=== PATIENT | female | born 1995 | race Caucasian/White ===

== ENCOUNTER 2020-06-23 13:27 | Emergency (ER) | payer OTHER ==
[~2020-06-23] VITALS: Ht 154.9 cm; Wt 79.4 kg
[2020-06-23] MEDS ORDERED: DIAZEPAM 2 MG TAB PO SCH (14:00)
[2020-06-23] MEDS ORDERED: KETOROLAC TROMETHAMINE 60 MG/2 ML VIAL IM ONE (14:00)
[2020-06-23] MEDS ORDERED: HYDROCODONE/APAP 10MG-325MG TAB PO ONE (14:00)
[2020-06-23] MEDS ORDERED: DIAZEPAM 5 MG TAB ONE (14:22)
[2020-06-23] MEDS ORDERED: DIAZEPAM 5 MG TAB PO ONE (14:45)
[2020-06-23] MEDS ORDERED: LIDOCAINE 4% PATCH TP ONE (15:00)
[2020-06-23] MEDS ORDERED: LIDOPATCH1 EACH TOP (15:09)
[2020-06-23] MEDS ORDERED: METHOCARBAMOL750 MG PO (15:09)
[2020-06-23] MEDS ORDERED: ULTRAM50 MG PO (15:09)
== END 2020-06-23 15:37 | disposition home or self-care (01) ==
LOC: ER 13:58
DX: M54.2 Cervicalgia (principal); M25.511 Pain in right shoulder; M79.18 Myalgia, other site; Y04.0XXA Assault by unarmed brawl or fight, initial encounter; Y92.89 Other specified places as the place of occurrence of the external cause
CPT/HCPCS: 72125; 73030; 99283; J1885

== ENCOUNTER 2020-07-03 12:03 | Emergency (ER) | payer OTHER ==
[~2020-07-03] VITALS: Ht 154.9 cm; Wt 79.4 kg
[~2020-07-03 12:03] MED LIST: LIDOPATCH1 EACH TOP; METHOCARBAMOL750 MG PO; ULTRAM50 MG PO
[2020-07-03] MEDS ORDERED: KETOROLAC TROMETHAMINE 60 MG/2 ML VIAL IM ONE (12:30)
[2020-07-03] MEDS ORDERED: DIAZEPAM 5 MG TAB PO ONE (13:00)
== END 2020-07-03 15:08 | disposition home or self-care (01) ==
LOC: ER 12:30
DX: M54.2 Cervicalgia (principal); M54.5 Low back pain; R51.9 Headache, unspecified; Y04.8XXD Assault by other bodily force, subsequent encounter; F17.210 Nicotine dependence, cigarettes, uncomplicated
CPT/HCPCS: 70450; 72050; 99284; J1885

== ENCOUNTER 2020-08-11 22:04 | Emergency (ER) | payer OTHER ==
[~2020-08-11] VITALS: Ht 154.9 cm; Wt 79.4 kg
[2020-08-11] MEDS ORDERED: KETOROLAC TROMETHAMINE 60 MG/2 ML VIAL IM ONE (22:30)
[2020-08-11 22:36] LABS: CLARITY,URINE CLEAR (CLEAR); COLOR,URINE YELLOW (YELLOW); KETONES,URINE NEGATIVE (NEGATIVE); LEUKOCYTE ESTERASE ,URINE NEGATIVE (NEGATIVE); NITRITE,URINE NEGATIVE (NEGATIVE); PREGNANCY TEST, URINE NEGATIVE (NEGATIVE); PROTEIN,URINE DIPSTICK NEGATIVE (NEGATIVE); URINE UROBILINOGEN 0.2 mg/dL (0.2 - 1)
[2020-08-11] MEDS ORDERED: KETOROLAC TROMETHAMINE 60 MG/2 ML VIAL ONE (22:39)
[2020-08-11 22:42] LABS: BACTERIA,URINE FEW /HPF; EPITHELIAL CELLS,URINE RARE /LPF; WBC,URINE (MAN) 0-5 /HPF (0-5)
== END 2020-08-11 23:00 | disposition home or self-care (01) ==
LOC: ER 22:27
DX: M54.42 Lumbago with sciatica, left side (principal); M54.41 Lumbago with sciatica, right side
CPT/HCPCS: 81001; 81025; 99283; J1885

== ENCOUNTER 2021-01-23 18:59 | Emergency (ER) | payer OTHER ==
[~2021-01-23] VITALS: Ht 154.9 cm; Wt 79.4 kg
[2021-01-23] MEDS ORDERED: TETRACAINE HCL 0.5% OPTH SOLN 4 ML BTL OP ONE (19:30)
[2021-01-23] MEDS ORDERED: FLUORESCEIN SOD(OPTH) 1 MG STRP OP ONE (19:30)
[2021-01-23] MEDS ORDERED: FLUORESCEIN SOD(OPTH) 1 MG STRP ONE (19:35)
[2021-01-23] MEDS ORDERED: TETRACAINE HCL 0.5% OPTH SOLN 4 ML BTL ONE (19:35)
[2021-01-23] MEDS ORDERED: EYE IRRIGATION (OPTH) 120 ML BTL ONE (19:36)
== END 2021-01-23 20:07 | disposition home or self-care (01) ==
LOC: ER 19:26
DX: S00.11XA Contusion of right eyelid and periocular area, initial encounter (principal); Y04.0XXA Assault by unarmed brawl or fight, initial encounter; Y92.008 Other place in unspecified non-institutional (private) residence as the place of occurrence of the external cause
CPT/HCPCS: 99282

== ENCOUNTER 2021-07-10 16:18 | Emergency (ER) | payer OTHER ==
[~2021-07-10] VITALS: Ht 154.9 cm; Wt 79.4 kg
== END 2021-07-10 17:14 | disposition home or self-care (01) ==
LOC: ER 16:31
DX: H10.9 Unspecified conjunctivitis (principal); R50.9 Fever, unspecified
CPT/HCPCS: 99282

== ENCOUNTER 2024-10-21 21:57 | Emergency (ER) | payer MEDICARE, OTHER ==
[~2024-10-21] VITALS: Ht 157.5 cm; Wt 89.4 kg
[2024-10-21] MEDS: SODIUM CHLORIDE 0.9% 1000ML 1,000 ML IV ONE (22:33)
[2024-10-21] MEDS: ONDANSETRON HCL INJ 2MG/ML 2ML 2 MG/ML VIAL IV STA (22:33)
[2024-10-21 22:35] LABS: BASOPHILS # (AUTO) 0.1 (0.0-0.1); BASOPHILS % 0.6 % (0.0-1.0); EOSINOPHILS # (AUTO) 0.3 (0.0-0.4); EOSINOPHILS % 2.2 % (0.0-6.0); HEMATOCRIT 47.6 % (34.2-44.1); HEMOGLOBIN 16.1 g/dL (12.0-16.0); LYMPHOCYTES % 32.9 % (18.0-39.1); MEAN CORPUSCULAR HEMOGLOBIN 31.6 pg (28-32); MEAN CORPUSCULAR HGB CONC 33.8 g/dL (31-35); MEAN CORPUSCULAR VOLUME 93.3 fL (81-99); NEUTROPHILS # (AUTO) 6.8 (2.1-6.9); NEUTROPHILS % 55.9 % (38.7-80.0); PLATELET COUNT 324 x10e3/uL (140-360); RED CELL DISTRIBUTION WIDTH 11.3 % (11.7-14.4); WHITE BLOOD COUNT 12.07 x10e3/uL (4.8-10.8)
[2024-10-21 23:32] LABS: ALBUMIN 4.3 g/dL (3.5-5.0); ALBUMIN/GLOBULIN RATIO 1.3 (0.8-2.0); ANION GAP 16.7 mmol/L (8-16); BILIRUBIN,TOTAL 0.4 mg/dL (0.2-1.2); CALCIUM 10.2 mg/dL (8.4-10.2); CREATININE, SERUM 0.98 mg/dL (0.57-1.11); POTASSIUM 3.7 mmol/L (3.5-5.1); TOTAL PROTEIN 7.6 g/dL (6.5-8.1)
[2024-10-22] MEDS ORDERED: METOCLOPRAMIDE HCL 10 MG/2ML VIAL ONE (00:18)
[2024-10-22] MEDS: METOCLOPRAMIDE HCL 10 MG/2ML VIAL IV ONE (00:20)
[2024-10-22] MEDS ORDERED: IOPAMIDOL 370 MG/ML 100 ML INFUS..BTL INJ ONE (01:13)
[2024-10-22 01:27] LABS: BILIRUBIN,URINE NEGATIVE (NEGATIVE); CLARITY,URINE CLEAR (CLEAR); COLOR,URINE YELLOW (YELLOW); GLUCOSE, URINE NEGATIVE (NEGATIVE); KETONES,URINE NEGATIVE (NEGATIVE); LEUKOCYTE ESTERASE ,URINE NEGATIVE (NEGATIVE); NITRITE,URINE NEGATIVE (NEGATIVE); PH,URINE 6 (5 - 7); PROTEIN,URINE DIPSTICK NEGATIVE (NEGATIVE); URINE UROBILINOGEN 0.2 mg/dL (0.2 - 1)
[2024-10-22 01:30] LABS: BACTERIA,URINE MANY /HPF
[2024-10-22 01:31] LABS: EPITHELIAL CELLS,URINE MODERATE /LPF
[2024-10-22 01:56] VITALS: PULSE 84; RESP 17; TEMP 98.2
[2024-10-22 02:17] VITALS: BP 116/71; PULSE 84; RESP 17; TEMP 98.2; O2SAT 95
[2024-10-22] MEDS ORDERED: METOCLOPRAMIDE10 MG PO (02:19)
== END 2024-10-22 02:30 | disposition home or self-care (01) ==
LOC: ER 22:00
DX: R11.2 Nausea with vomiting, unspecified (principal); R10.32 Left lower quadrant pain; F41.9 Anxiety disorder, unspecified; F90.9 Attention-deficit hyperactivity disorder, unspecified type; F31.9 Bipolar disorder, unspecified; E66.01 Morbid (severe) obesity due to excess calories; F17.210 Nicotine dependence, cigarettes, uncomplicated
CPT/HCPCS: 36415; 74177; 80053; 81001; 84702; 85025; 99284; J2405; J2765; J7030; Q9967